=== PATIENT | male | born 1970 | race Caucasian/White ===

== ENCOUNTER → 2018-05-26 17:05 | Outpatient (CLI) | payer OTHER ==
[~2018-05-26 17:05] MED LIST: DECADRON P4 MG/ML-1M IH; TENCON 50-3251 EACH PO; TRAM1TAB98 PO
== END | disposition home or self-care (01) ==
LOC: RAD 17:05
DX: E78.2 Mixed hyperlipidemia (principal); H34.12 Central retinal artery occlusion, left eye

== ENCOUNTER 2023-12-17 07:54 | Outpatient (CLI) | payer OTHER | END 2023-12-17 08:07 | disposition home or self-care (01) | LOC: SONOGRAMA 07:54 | PROVIDERS: ATTEND Internal Medicine | DX: R10.9 Unspecified abdominal pain (principal) ==